=== PATIENT | male | born 1960 ===

== ENCOUNTER 2019-02-23 02:57 | Emergency (ER) | payer OTHER ==
[2019-02-23 03:18] VITALS: RESP 18
[2019-02-23 04:03] LABS: BARBITURATES, UR NEGATIVE (NEGATIVE); BENZODIAZEPINES, UR NEGATIVE (NEGATIVE)
[2019-02-23 04:04] LABS: OPIATES, UR NEGATIVE (NEGATIVE); PHENCYCLIDINE, UR NEGATIVE (NEGATIVE)
--- NOTE | 2019-02-23 05:38 | ED PDOC ---
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 He states he began having pain this afternoon that felt like gastritis. He received treatment at [facility] and started to feel better and left. However pain became worse, so patient decided to come here. He reports that pain felt different and that it was located higher in chest. Patient admits he is not always complaint with medications and that he is a chronic smoker so he is worried about ulcers. He denies any shortness of breath or diaphoresis. PMD: No provider Past Medical History Reviewed: Historical Data, Nursing Documentation, Vital Signs Vital Signs: Last Vital Signs Temp 98.1 F 02/23/19 03:17 Pulse 60 02/23/19 03:29 Resp 18 02/23/19 03:17 BP 121/81 02/23/19 03:17 Pulse Ox 95 02/23/19 03:17 - Medical History PMH: Bipolar Disorder, Depression, HTN Denies: Chronic Kidney Disease - Surgical History Surgical History: Appendectomy - Family History Family History: States: Unknown Family Hx - Social History Current smoker - smoking cessation education provided: Yes - Immunization History Hx Tetanus Toxoid Vaccination: No Hx Influenza Vaccination: No Hx Pneumococcal Vaccination: No - Home Medications Home Medications: Ambulatory Orders Medication Instructions Recorded Aluminum Hydroxide/Magnesium 30 ml PO Q8 PRN #1 bottle 02/23/19 [Maalox Plus 30 ml] - Allergies Allergies/Adverse Reactions: Allergies Allergy/AdvReac Type Severity Reaction Status Date / Time No Known Allergies Allergy Verified 02/23/19 03:12 Review of Systems ROS Statement: Except As Marked, All Systems Reviewed And Found Negative Constitutional: Negative for: Sweats Cardiovascular: Positive for: Chest Pain Respiratory: Negative for: Shortness of Breath Physical Exam - Reviewed Nursing Documentation Reviewed: Yes Vital Signs Reviewed: Yes - Physical Exam Appears: Positive for: Non-toxic, No Acute Distress Head Exam: Positive for: ATRAUMATIC, NORMOCEPHALIC Skin: Positive for: Normal Color, Warm, Dry Eye Exam: Positive for: Normal appearance, EOMI, PERRL ENT: Positive for: Normal ENT Inspection Neck: Positive for: Normal, Painless ROM, Supple Cardiovascular/Chest: Positive for: Regular Rate, Rhythm. Negative for: Murmur Respiratory: Positive for: Normal Breath Sounds. Negative for: Respiratory Distress Gastrointestinal/Abdominal: Positive for: Normal Exam, Soft. Negative for: Tenderness Back: Positive for: Normal Inspection. Negative for: L CVA Tenderness, R CVA Tenderness, Vertebral Tenderness Extremity: Positive for: Normal ROM. Negative for: Pedal Edema, Deformity Neurological/Psych: Positive for: Alert, Oriented - Laboratory Results Lab Results: Troponin I < 0.0120 ng/mL (0.00-0.120) 02/23/19 03:35 - ECG O2 Sat by Pulse Oximetry: 95 (RA) Pulse Ox Interpretation: Normal Medical Decision Making Medical Decision Making: Time: 324 A/P: Work up for continuous chest pain following discharge from other hospitalist. Work up for cardiac vs. GI vs. Gastritis. Will treat with Troponin, EKG, GI cocktail. Patient is low suspicion for cardiac etiology. Will reassess patient. --Aspirin 325 mg PO --Pepcid 40 mg PO Time: 621 --Patient Troponin was negative and cocaine was positive. --Patient's vitals remain normal with no indication of medical treatment. --Patient already given GI cocktail medications from [facility]. --Patient to be discharged home and given referral for AA. Scribe Attestation: Documented by Felix Duran, acting as a scribe Nesha Delacruz MD. Provider Scribe Attestation: All medical record entries made by the Scribe were at my direction and personally dictated by me. I have reviewed the chart and agree that the record accurately reflects my personal performance of the history, physical exam, medical decision making, and the department course for this patient. I have also personally directed, reviewed, and agree with the discharge instructions and disposition. Disposition - Clinical Impression Clinical Impression: Atypical chest pain, Gastroenteritis - Disposition Referrals: Alcoholics Anonymous [Outside] Disposition Time: 06:22 Condition: IMPROVED Additional Instructions: Do not use cocaine or other other drugs or alcohol. Take medications for gastritis as prescribed. Follow up with primary medical doctor. Instructions: Chest Pain That Is Not Caused by the Heart (DC) Forms: [id number] (Gabonese)
[2019-02-23 06:48] VITALS: BP 106/64; PULSE 57; TEMP 97.1
[2019-02-24 14:15] VITALS: O2SAT 95
--- NOTE | 2019-02-27 07:51 | CARD ---
APPROVED REPORT Date of service: 02/23/2019 EKG Measurement Heart [id number] <Conclusion> Normal sinus rhythm ST elevation, probably due to early repolarization or acute injury Abnormal ECG
== END 2019-02-23 06:56 | disposition home or self-care (01) ==
LOC: H.ER 02:57
DX: R07.89 Other chest pain (principal); K52.9 Noninfective gastroenteritis and colitis, unspecified; F31.9 Bipolar disorder, unspecified; I10 Essential (primary) hypertension